=== PATIENT | male | born 1995 | race Caucasian/White ===

== ENCOUNTER 2018-02-16 15:36 | Emergency (ER) | payer OTHER ==
[2018-02-16 15:56] VITALS: BP 167/109
[2018-02-16] MEDS ORDERED: IV NORMAL SALINE 1,000ML 1,000 ML IV SCH (15:58)
[2018-02-16 16:04] LABS: BASO % 0 % (0-3); EOS % 0 % (0-3); HEMATOCRIT 51.1 % (39.0-53.0); HEMOGLOBIN 17.5 g/dL (13.0-17.5); LYMPH # 0.4 x10^3/uL (1.0-4.8); LYMPH % 3 % (24-48); MEAN CORPUSCULAR HEMOGLOBIN 31 pg (25-35); MEAN CORPUSCULAR HGB CONC 34 g/dL (31-37); MEAN CORPUSCULAR VOLUME 90 fL (79-100); MONO # 0.7 x10^3/uL (0.0-1.1); MONO % 6 % (0-9); NEUT # 12.1 x10^3uL (1.8-7.7); NEUT % 91 % (31-73); PLATELET COUNT 165 x10^3/uL (140-400); RED BLOOD COUNT 5.66 x10^6/uL (4.30-5.70); RED CELL DISTRIBUTION WIDTH 12.4 % (11.5-14.5); WHITE BLOOD COUNT 13.3 x10^3/uL (4.0-11.0)
[2018-02-16 16:14] LABS: ALBUMIN 4.4 g/dL (3.4-5.0); ALBUMIN/GLOBULIN RATIO 1.6 (1.0-1.7); CALCIUM 8.9 mg/dL (8.5-10.1); CREATININE 1.1 mg/dL (0.7-1.3); GFR 82.2; POTASSIUM 3.9 mmol/L (3.5-5.1); TOTAL BILIRUBIN 1.1 mg/dL (0.2-1.0); TOTAL PROTEIN 7.2 g/dL (6.4-8.2)
[2018-02-16] MEDS ORDERED: KETOROLAC 30 MG/ML VIAL. IV ONE (16:15)
[2018-02-16] MEDS ORDERED: PANTOPRAZOLE IV 40 MG VIAL. IVP ONE (16:15)
[2018-02-16] MEDS ORDERED: ONDANSETRON PF 4 MG/2 ML VIAL. IV ONE (16:15)
[2018-02-16] MEDS ORDERED: IOHEXOL 300 MG/ML 75 ML VIAL. IV ONE (17:30)
--- NOTE | 2018-02-16 17:57 | RAD ---
INDICATION: Abdominal pain x 6 hrs, nausea, vomiting, no surgery to abdomen. COMPARISON: None. TECHNIQUE: Axial CT images obtained through the abdomen and pelvis with contrast. One or more of the following individualized dose reduction techniques were utilized for this examination: 1. Automated exposure control; 2. Adjustment of the mA and/or kV according to patient size; 3. Use of iterative reconstruction technique. FINDINGS: Abdominal aorta is not aneurysmal. Liver is mildly low attenuation. No intrahepatic bile duct dilation. No peripancreatic fluid collection. Spleen unremarkable. No left-sided hydronephrosis. Urinary bladder is partially distended. No right-sided hydronephrosis. Minimal prominence urinary bladder wall. No adjacent inflammatory changes therefore favor that this is secondary to lack of distention rather than inflammation from cystitis. Appendix measures 5 to 6 mm without definite adjacent inflammatory changes. No dilated loops of bowel to suggest obstruction. Small fat-containing umbilical hernia. There is some suspected disc protrusions within the spine with associated central canal narrowing IMPRESSION: 1. The appendix is upper limits of normal in size without definite adjacent inflammatory changes. 2. No hydronephrosis. 3. No evidence of bowel obstruction. Electronically signed by: Patrice Verdin MD (02/16/2018 5:54 PM) [facility]
--- NOTE | 2018-02-16 18:03 | PHYS DOC ---
Past History Past Medical History: Depression, Other Past Surgical History: No Surgical History Alcohol Use: None Drug Use: None Adult General Chief Complaint Chief Complaint: DIARRHEA HPI HPI Patient is a 22-year-old male who presents with complaint of nausea with vomiting and diarrhea that started last night. Patient states that symptoms were not very severe at that time but starting this morning symptoms got much worse. Patient states that he is not able to hold anything down since. He also complains of a lot of abdominal cramping in lower abdomen that he rates at a 7 out of 10. He denies any fever. He states that he does have decreased appetite today. He states that nothing is improving the symptoms and symptoms are worsened if he tries to eat or drink anything. Review of Systems Review of Systems Constitutional: Denies fever or chills [] Respiratory: Denies cough or shortness of breath [] Cardiovascular: No additional information not addressed in HPI [] GI: Complains of abdominal cramping with nausea, vomiting and diarrhea [] Neurologic: Denies headache, focal weakness or sensory changes [] All other systems were reviewed and found to be within normal limits, except as documented in this note. Current Medications Current Medications Current Medications Medications (Trade) Dose Ordered Sig/Fish Start Time Stop Time Status Last Admin Dose Admin Fentanyl Citrate (Fentanyl 2ml Vial) 25 mcg 1X ONCE 02/16/18 16:15 02/16/18 16:16 DC 02/16/18 16:19 25 MCG Iohexol (Omnipaque 300 Mg/ml) 75 ml 1X ONCE 02/16/18 17:30 02/16/18 17:31 DC Ketorolac Tromethamine (Toradol 30mg Vial) 30 mg 1X ONCE 02/16/18 16:15 02/16/18 16:16 DC 02/16/18 16:19 30 MG Ondansetron HCl (Zofran) 4 mg 1X ONCE 02/16/18 16:15 02/16/18 16:16 DC 02/16/18 16:19 4 MG Pantoprazole Sodium (Protonix Vial) 40 mg 1X ONCE 02/16/18 16:15 02/16/18 16:16 DC 02/16/18 16:19 40 MG Sodium Chloride 1,000 ml @ 1,000 mls/hr Q1H 02/16/18 15:58 02/16/18 16:57 DC 02/16/18 15:58 1,000 MLS/HR Allergies Allergies Allergies Coded Allergies Type Severity Reaction Last Updated Verified No Known Drug Allergies 02/16/18 No Physical Exam Physical Exam Constitutional: Well developed, well nourished, no acute distress, non-toxic appearance. [] HENT: Normocephalic, atraumatic, bilateral external ears normal, oropharynx moist, no oral exudates, nose normal. [] Eyes: PERRLA, EOMI, conjunctiva normal, no discharge. [] Neck: Normal range of motion, no tenderness, supple, no stridor. [] Cardiovascular: Regular rate and rhythm, no murmur [] Lungs & Thorax: Bilateral breath sounds clear to auscultation [] Abdomen: Bowel sounds normal, soft, with lower abdominal tenderness, left greater than right. [] Skin: Warm, dry, no erythema, no rash. [] Extremities: No tenderness, no cyanosis, no clubbing, ROM intact, no edema. [] Neurologic: Alert and oriented X 3, normal motor function, normal sensory function, no focal deficits noted. [] Current Patient Data Vital Signs Vital Signs Date Time Temp Pulse Resp B/P (MAP) Pulse Ox O2 Delivery O2 Flow Rate FiO2 02/16/18 15:56 105 26 96 Room Air Lab Results Laboratory Tests Test 02/16/18 15:45 White Blood Count 13.3 x10^3/uL (4.0-11.0) H Red Blood Count 5.66 x10^6/uL (4.30-5.70) Hemoglobin 17.5 g/dL (13.0-17.5) Hematocrit 51.1 % (39.0-53.0) Mean Corpuscular Volume 90 fL (79-100) Mean Corpuscular Hemoglobin 31 pg (25-35) Mean Corpuscular Hemoglobin Concent 34 g/dL (31-37) Red Cell Distribution Width 12.4 % (11.5-14.5) Platelet Count 165 x10^3/uL (140-400) Neutrophils (%) (Auto) 91 % (31-73) H Lymphocytes (%) (Auto) 3 % (24-48) L Monocytes (%) (Auto) 6 % (0-9) Eosinophils (%) (Auto) 0 % (0-3) Basophils (%) (Auto) 0 % (0-3) Neutrophils # (Auto) 12.1 x10^3uL (1.8-7.7) H Lymphocytes # (Auto) 0.4 x10^3/uL (1.0-4.8) L Monocytes # (Auto) 0.7 x10^3/uL (0.0-1.1) Eosinophils # (Auto) 0.0 x10^3/uL (0.0-0.7) Basophils # (Auto) 0.0 x10^3/uL (0.0-0.2) Sodium Level 137 mmol/L (136-145) Potassium Level 3.9 mmol/L (3.5-5.1) Chloride Level 101 mmol/L (98-107) Carbon Dioxide Level 21 mmol/L (21-32) Anion Gap 15 (6-14) H Blood Urea Nitrogen 17 mg/dL (8-26) Creatinine 1.1 mg/dL (0.7-1.3) Estimated GFR (Cockcroft-Gault) 82.2 BUN/Creatinine Ratio 15 (6-20) Glucose Level 128 mg/dL (70-99) H Calcium Level 8.9 mg/dL (8.5-10.1) Total Bilirubin 1.1 mg/dL (0.2-1.0) H Aspartate Amino Transferase (AST) 22 U/L (15-37) Alanine Aminotransferase (ALT) 40 U/L (16-63) Alkaline Phosphatase 101 U/L (46-116) Total Protein 7.2 g/dL (6.4-8.2) Albumin 4.4 g/dL (3.4-5.0) Albumin/Globulin Ratio 1.6 (1.0-1.7) Lipase 96 U/L (73-393) EKG EKG [] Radiology/Procedures Radiology/Procedures [] Impressions: PROCEDURE: CT ABD PELV W/ IV CONTRST ONLY INDICATION: Abdominal pain x 6 hrs, nausea, vomiting, no surgery to abdomen. COMPARISON: None. TECHNIQUE: Axial CT images obtained through the abdomen and pelvis with contrast. One or more of the following individualized dose reduction techniques were utilized for this examination: 1. Automated exposure control; 2. Adjustment of the mA and/or kV according to patient size; 3. Use of iterative reconstruction technique. FINDINGS: Abdominal aorta is not aneurysmal. Liver is mildly low attenuation. No intrahepatic bile duct dilation. No peripancreatic fluid collection. Spleen unremarkable. No left-sided hydronephrosis. Urinary bladder is partially distended. No right-sided hydronephrosis. Minimal prominence urinary bladder wall. No adjacent inflammatory changes therefore favor that this is secondary to lack of distention rather than inflammation from cystitis. Appendix measures 5 to 6 mm without definite adjacent inflammatory changes. No dilated loops of bowel to suggest obstruction. Small fat-containing umbilical hernia. There is some suspected disc protrusions within the spine with associated central canal narrowing IMPRESSION: 1. The appendix is upper limits of normal in size without definite adjacent inflammatory changes. 2. No hydronephrosis. 3. No evidence of bowel obstruction. Electronically signed by: Francy Verdin MD (02/16/2018 5:54 PM) [facility] DICTATED AND SIGNED BY: FRANCY VERDIN MD Course & Med Decision Making Course & Med Decision Making Pertinent Labs and Imaging studies reviewed. (See chart for details) [] Dragon Disclaimer Dragon Disclaimer This electronic medical record was generated, in whole or in part, using a voice recognition dictation system. Departure Departure: Impression: Primary Impression: Gastroenteritis Disposition: HOME, SELF-CARE Condition: STABLE Referrals: PCP,NO (PCP) Patient Instructions: Viral Gastroenteritis Scripts Ondansetron Hcl (ZOFRAN) 4 Mg Tablet 1 TAB PO Q8HRS PRN for NAUSEA/VOMITING, #12 TAB Prov: ANNA KINNEY Jr. DO 02/16/18 Diphenoxylate Hcl/Atropine (LOMOTIL TABLET) 1 Each Tablet 1 TAB PO TID PRN for DIARRHEA, #30 TAB Prov: ANNA KINNEY Jr. DO 02/16/18 ANNA KINNEY Jr. DO Feb 16, 2018 18:03
[2018-02-16] MEDS ORDERED: DIPH1TAB PO (18:11)
[2018-02-16] MEDS ORDERED: ONDA4TAB7 PO (18:11)
== END 2018-02-16 18:17 | disposition home or self-care (01) ==
LOC: ER 15:36
DX: K52.9 Noninfective gastroenteritis and colitis, unspecified (principal); F32.9 Major depressive disorder, single episode, unspecified
CPT/HCPCS: 36415; 74177; 80053; 83690; 85025; 96361; 96374; 96375; 99284; C9113; J1885; J2405; J3010; J7030